=== PATIENT | male | born 1970 | race Caucasian/White ===

== ENCOUNTER → 2019-11-13 12:20 | Outpatient (CLI) | payer OTHER, SELFPAY ==
[2019-11-13 13:33] LABS: Basophils # 0.1 K/mm3 (0-0.2); Basophils % 1.4 % (0.1-2.0); Eosinophils % 0.8 % (0.1-12.0); Hematocrit 44.6 % (42.0-52.0); Hemoglobin 15.5 g/dL (14.1-18.0); Lymphocytes # 1.4 K/mm3 (0.7-4.5); Lymphocytes % 28.3 % (10-50); Mean Corpuscular HGB Conc 34.8 g/dL (31.8-35.4); Mean Corpuscular Hemoglobin 30.8 pg (27.0-31.2); Mean Corpuscular Volume 88.4 fl (80-94); Mean Platelet Volume 7.6 fl (7.4-10.4); Monocytes # 0.8 K/mm3 (0.1-1.0); Monocytes % 15.8 % (1.7-9.3); Neutrophils # 2.7 K/mm3 (1.8-7.8); Neutrophils % 53.7 % (37.0-80.0); Platelet Count 189 K/mm3 (142-424); Red Blood Count 5.04 M/mm3 (4.60-6.20); Red Cell Distribution Width 13.6 % (11.5-17.5)
[2019-11-13 14:54] LABS: Coronavirus 19 IgG Antibody Negative (Negative); Coronavirus 19 IgM Antibody Negative (Negative)
[2019-11-15 04:40] LABS: Covid-19 Nasal PCR Sendout Lex NOT DETECTED
== END ==
PROVIDERS: PCP Nurse Practitioner; Visit Provider Nurse Practitioner
DX: Z03.818 Encounter for observation for suspected exposure to other biological agents ruled out (principal)
CPT/HCPCS: 36415; 85025; 86328; U0004

== ENCOUNTER → 2021-12-09 06:27 | Outpatient (CLI) | payer OTHER, SELFPAY ==
[2021-12-08 23:09] LABS: Free T4 (Free Thyroxine) 1.86 ng/dl (0.78-2.19)
[2021-12-09 00:02] LABS: Thyroid Stimulating Hormone 1.26 uIU/mL (0.465-4.68)
== END ==
PROVIDERS: PCP Nurse Practitioner; Visit Provider Nurse Practitioner
DX: E03.9 Hypothyroidism, unspecified (principal)
CPT/HCPCS: 84439; 84443

== ENCOUNTER → 2022-07-30 11:00 | Outpatient (CLI) | payer OTHER, SELFPAY ==
[2022-07-30 19:04] LABS: Basophils # 0.1 K/mm3 (0-0.2); Basophils % 1.7 % (0.1-2.0); Eosinophils # 0.2 K/mm3 (0.0-0.4); Eosinophils % 3.3 % (0.1-12.0); Hematocrit 47.1 % (42.0-52.0); Hemoglobin 15.4 g/dL (14.1-18.0); Lymphocytes # 2.3 K/mm3 (0.7-4.5); Lymphocytes % 38.8 % (10-50); Mean Corpuscular HGB Conc 32.7 g/dL (31.8-35.4); Mean Corpuscular Hemoglobin 29.7 pg (27.0-31.2); Mean Corpuscular Volume 90.8 fl (80-94); Mean Platelet Volume 8.7 fl (7.4-10.4); Monocytes # 0.6 K/mm3 (0.1-1.0); Monocytes % 9.2 % (1.7-9.3); Neutrophils # 2.8 K/mm3 (1.8-7.8); Platelet Count 263 K/mm3 (142-424); Red Blood Count 5.19 M/mm3 (4.60-6.20)
[2022-07-30 19:24] LABS: Alanine Aminotransferase 30 U/L (12-78); Albumin Level 4.2 g/dl (3.5-5.0); Albumin/Globulin Ratio 1.6 (1.1-1.8); Alkaline Phosphatase 68 U/L (38-126); Anion Gap 10.7 mEq/L (5-15); Aspartate Amino Transferase 31 U/L (17-59); Bilirubin,Total 0.9 mg/dl (0.2-1.3); Blood Urea Nitrogen 18 mg/dl (9-20); Calcium 8.8 mg/dl (8.4-10.2); Carbon Dioxide 28 mmol/L (22.0-30.0); Chloride 103 mmol/L (98-107); Cholesterol 139 mg/dl (140-200); Estimated Glomerular Filt Rate 79 ml/min (>60); GFR (African American) 96 ML/MIN (>60); Globulin 2.7 g/dL (1.3-3.2); Glucose 96 mg/dl (74-100); HDL Cholesterol 46 mg/dl (40-60); Potassium 4.7 mmoL/L (3.5-5.1); Sodium 137 mmol/L (136-145); Total Protein,Serum 6.9 g/dl (6.3-8.2); Triglycerides 54 mg/dl (30-150); VLDL Cholesterol 11 mg/dL (0-40)
[2022-07-30 19:35] LABS: Direct LDL Cholesterol 77.52 mg/dL (100-129)
[2022-07-30 19:40] LABS: Creatinine,Urine Random 49 mg/dL (Not Estab.); Microalbumin < 6.000 mg/L (0-16.7)
[2022-07-30 19:55] LABS: Prostate Specific Ag Screen 1.1 ng/ml (0.0-4.0); Thyroid Stimulating Hormone 0.02 uIU/mL (0.465-4.68)
[2022-07-30 19:58] LABS: Hemoglobin A1C 5.4 % (4.0-6.0)
== END ==
LOC: LAB.DROPOF 07-31 08:31
PROVIDERS: PCP Nurse Practitioner; Visit Provider Nurse Practitioner
DX: E03.9 Hypothyroidism, unspecified (principal); E78.5 Hyperlipidemia, unspecified; I10 Essential (primary) hypertension; Z12.5 Encounter for screening for malignant neoplasm of prostate
CPT/HCPCS: 80053; 80061; 82043; 82570; 83036; 84443; 85025; G0103

== ENCOUNTER → 2022-08-05 15:23 | Outpatient (CLI) | payer OTHER, SELFPAY ==
--- NOTE | 2022-08-05 15:30 | CT_ITS ---
FINAL REPORT CLINICAL HISTORY: lung cancer screening 52-year-old former smoker for 18 yrs, quit 15 yrs ago, 1 pk per day FINDINGS: Low-Dose Chest CT Axial images were obtained from the lung apex to the mid abdomen by computed tomography. Low-dose protocol was utilized. CTDI vol (mGy): 2.90 DLP (mGy-cm): 114.90 There is no axillary adenopathy. There is no hilar or mediastinal adenopathy. The heart is proper size. There is no pericardial or pleural effusion. Lung window images demonstrate no suspicious infiltrate or nodule. Limited images of the upper abdomen are unremarkable. IMPRESSION: No suspicious infiltrate or nodule is identified. Lung RADS category 1. Recommend 12 month follow-up low-dose chest CT. Reviewed, Interpreted and Dictated by Fredy Marques MD Transcribed by Guillermina Hu Authenticated and [facility]
== END ==
LOC: RAD 15:23
PROVIDERS: PCP Nurse Practitioner; Visit Provider Nurse Practitioner
DX: Z87.891 Personal history of nicotine dependence (principal); Z12.2 Encounter for screening for malignant neoplasm of respiratory organs
CPT/HCPCS: 71271

== ENCOUNTER → 2022-12-08 23:17 | Outpatient (CLI) | payer OTHER, SELFPAY ==
[2022-12-08 19:00] LABS: Alanine Aminotransferase 38 U/L (12-78); Albumin Level 4.1 g/dl (3.5-5.0); Albumin/Globulin Ratio 1.4 (1.1-1.8); Alkaline Phosphatase 78 U/L (38-126); Aspartate Amino Transferase 38 U/L (17-59); Bilirubin,Total 0.6 mg/dl (0.2-1.3); Blood Urea Nitrogen 20 mg/dl (9-20); Carbon Dioxide 27 mmol/L (22.0-30.0); Chloride 106 mmol/L (98-107); Chol/HDL Ratio 3.7 (1-3.5); Cholesterol 161 mg/dl (140-200); Estimated Glomerular Filt Rate 58 ml/min (>60); GFR (African American) 71 ML/MIN (>60); Glucose 110 mg/dl (74-100); HDL Cholesterol 43 mg/dl (40-60); Sodium 140 mmol/L (136-145); Total Protein,Serum 7.1 g/dl (6.3-8.2); Triglycerides 111 mg/dl (30-150); VLDL Cholesterol 22 mg/dL (0-40)
[2022-12-08 19:10] LABS: Direct LDL Cholesterol 83.15 mg/dL (100-129)
[2022-12-08 19:18] LABS: Free T4 (Free Thyroxine) 1.37 ng/dl (0.78-2.19)
== END ==
LOC: LAB.DROPOF 23:17
PROVIDERS: PCP Nurse Practitioner; Visit Provider Nurse Practitioner
DX: E03.9 Hypothyroidism, unspecified (principal); E78.5 Hyperlipidemia, unspecified; I10 Essential (primary) hypertension
CPT/HCPCS: 80053; 80061; 84439; 84443

== ENCOUNTER → 2023-02-05 20:41 | Outpatient (CLI) | payer OTHER, SELFPAY ==
[2023-02-05 21:00] LABS: Anion Gap 14.5 mEq/L (5-15); Blood Urea Nitrogen 17 mg/dl (9-20); Calcium 8.9 mg/dl (8.4-10.2); Carbon Dioxide 27 mmol/L (22.0-30.0); Chloride 105 mmol/L (98-107); Estimated Glomerular Filt Rate 71 ml/min (>60); GFR (African American) 86 ML/MIN (>60); Glucose 100 mg/dl (74-100); Potassium 4.5 mmoL/L (3.5-5.1); Sodium 142 mmol/L (136-145)
[2023-02-05 21:02] LABS: Hemoglobin A1C 5.5 % (4.0-6.0)
[2023-02-05 21:17] LABS: Free T4 (Free Thyroxine) 1.85 ng/dl (0.78-2.19)
[2023-02-05 21:31] LABS: Thyroid Stimulating Hormone 0.09 uIU/mL (0.465-4.68)
== END ==
LOC: LAB.DROPOF 20:43
PROVIDERS: PCP Nurse Practitioner; Visit Provider Nurse Practitioner
DX: E03.9 Hypothyroidism, unspecified (principal); I10 Essential (primary) hypertension; Z87.891 Personal history of nicotine dependence
CPT/HCPCS: 80048; 83036; 84439; 84443

== ENCOUNTER 2023-10-08 09:44 | Outpatient (CLI) | payer OTHER, SELFPAY ==
[2023-10-08 18:25] LABS: Basophils # 0.1 K/mm3 (0-0.2); Basophils % 1.3 % (0.1-2.0); Eosinophils # 0.2 K/mm3 (0.0-0.4); Eosinophils % 3.4 % (0.1-12.0); Hematocrit 46.6 % (42.0-52.0); Hemoglobin 15.6 g/dL (14.1-18.0); Lymphocytes # 1.9 K/mm3 (0.7-4.5); Lymphocytes % 29.3 % (10-50); Mean Corpuscular HGB Conc 33.6 g/dL (31.8-35.4); Mean Corpuscular Hemoglobin 31.1 pg (27.0-31.2); Mean Corpuscular Volume 92.5 fl (80-94); Mean Platelet Volume 9.2 fl (7.4-10.4); Monocytes # 0.4 K/mm3 (0.1-1.0); Neutrophils # 3.7 K/mm3 (1.8-7.8); Platelet Count 221 K/mm3 (142-424); Red Blood Count 5.04 M/mm3 (4.60-6.20); Red Cell Distribution Width 13.7 % (11.5-17.5); White Blood Count 6.3 K/mm3 (4.8-10.8)
[2023-10-08 18:38] LABS: Alanine Aminotransferase 34 U/L (12-78); Albumin Level 4.1 g/dl (3.5-5.0); Albumin/Globulin Ratio 1.5 (1.1-1.8); Alkaline Phosphatase 64 U/L (38-126); Anion Gap 14.4 mEq/L (5-15); Aspartate Amino Transferase 38 U/L (17-59); Bilirubin,Total 0.5 mg/dl (0.2-1.3); Blood Urea Nitrogen 19 mg/dl (9-20); Calcium 9.3 mg/dl (8.4-10.2); Carbon Dioxide 25 mmol/L (22.0-30.0); Chloride 108 mmol/L (98-107); Chol/HDL Ratio 3.2 (1-3.5); Cholesterol 191 mg/dl (140-200); Estimated Glomerular Filt Rate 79 ml/min (>60); GFR (African American) 95 ML/MIN (>60); Globulin 2.8 g/dL (1.3-3.2); Glucose 111 mg/dl (74-100); HDL Cholesterol 60 mg/dl (40-60); Potassium 4.4 mmoL/L (3.5-5.1); Sodium 143 mmol/L (136-145); Total Protein,Serum 6.9 g/dl (6.3-8.2); Triglycerides 75 mg/dl (30-150); VLDL Cholesterol 15 mg/dL (0-40)
[2023-10-08 18:50] LABS: Direct LDL Cholesterol 106.16 mg/dL (100-129)
[2023-10-08 18:56] LABS: 25-OH Vitamin D, Total 35.7 ng/mL (30-100)
[2023-10-08 19:03] LABS: Hemoglobin A1C 5.6 % (4.0-6.0)
[2023-10-08 19:09] LABS: Prostate Specific Ag Screen 1.1 ng/ml (0.0-4.0); Thyroid Stimulating Hormone 3.67 uIU/mL (0.465-4.68)
[2023-10-08 19:29] LABS: Vitamin B12 381 pg/mL (239-931)
== END 2023-10-08 23:59 | disposition home or self-care (01) ==
LOC: LAB.DROPOF 10-12 09:44
PROVIDERS: PCP Nurse Practitioner Family; Visit Provider Nurse Practitioner Family
DX: I10 Essential (primary) hypertension (principal); Z79.899 Other long term (current) drug therapy
CPT/HCPCS: 80053; 80061; 82306; 82607; 83036; 84443; 85025; G0103

== ENCOUNTER 2024-08-11 08:59 | Outpatient (CLI) | payer OTHER, SELFPAY ==
[2024-08-11 18:39] LABS: Basophils # 0.1 K/mm3 (0-0.2); Basophils % 1.5 % (0.1-2.0); Eosinophils # 0.4 K/mm3 (0.0-0.4); Eosinophils % 5.9 % (0.1-12.0); Hematocrit 45.6 % (42.0-52.0); Hemoglobin 15.1 g/dL (14.1-18.0); Lymphocytes # 2.1 K/mm3 (0.7-4.5); Lymphocytes % 34.5 % (10-50); Mean Corpuscular HGB Conc 33.1 g/dL (31.8-35.4); Mean Corpuscular Hemoglobin 29.9 pg (27.0-31.2); Mean Corpuscular Volume 90.3 fl (80-94); Mean Platelet Volume 10.5 fl (7.4-10.4); Monocytes # 0.6 K/mm3 (0.1-1.0); Monocytes % 10.3 % (1.7-9.3); Neutrophils # 2.9 K/mm3 (1.8-7.8); Neutrophils % 47.5 % (37.0-80.0); Platelet Count 220 K/mm3 (142-424); Red Blood Count 5.05 M/mm3 (4.60-6.20); Red Cell Distribution Width 12.6 % (11.5-17.5); White Blood Count 6.1 K/mm3 (4.8-10.8)
[2024-08-11 19:04] LABS: Alanine Aminotransferase 30 U/L (12-78); Albumin Level 4.4 g/dl (3.5-5.0); Albumin/Globulin Ratio 1.9 (1.1-1.8); Alkaline Phosphatase 54 U/L (38-126); Anion Gap 13.6 mEq/L (5-15); Aspartate Amino Transferase 32 U/L (17-59); Bilirubin,Total 0.6 mg/dl (0.2-1.3); Blood Urea Nitrogen 18 mg/dl (9-20); Calcium 9.8 mg/dl (8.4-10.2); Carbon Dioxide 27 mmol/L (22.0-30.0); Chloride 104 mmol/L (98-107); Cholesterol 198 mg/dl (140-200); Estimated Glomerular Filt Rate 78 ml/min (>60); GFR (African American) 95 ML/MIN (>60); Globulin 2.3 g/dL (1.3-3.2); Glucose 101 mg/dl (74-100); HDL Cholesterol 50 mg/dl (40-60); Potassium 4.6 mmoL/L (3.5-5.1); Sodium 140 mmol/L (136-145); Total Protein,Serum 6.7 g/dl (6.3-8.2); Triglycerides 83 mg/dl (30-150); VLDL Cholesterol 17 mg/dL (0-40)
[2024-08-11 19:16] LABS: 25-OH Vitamin D, Total 30.9 ng/mL (30-100)
[2024-08-11 19:22] LABS: Direct LDL Cholesterol 111.54 mg/dL (100-129)
[2024-08-11 19:33] LABS: Thyroid Stimulating Hormone 9.61 uIU/mL (0.465-4.68)
[2024-08-11 20:19] LABS: HIV Combo NEGATIVE (Negative)
[2024-08-11 20:26] LABS: Hepatitis C Ab Qual. W/ RFX NEGATIVE (Negative)
== END 2024-08-11 23:59 | disposition home or self-care (01) ==
LOC: LAB.DROPOF 08-12 11:16
PROVIDERS: PCP Nurse Practitioner Family; Visit Provider Nurse Practitioner Family
DX: E03.9 Hypothyroidism, unspecified (principal); I10 Essential (primary) hypertension; Z11.59 Encounter for screening for other viral diseases
CPT/HCPCS: 80053; 80061; 82306; 84443; 85025; 86803; 87389

== ENCOUNTER → 2024-09-25 08:21 | Outpatient (CLI) | payer OTHER, SELFPAY | LOC: SL 08:22 | PROVIDERS: PCP Nurse Practitioner Family; Visit Provider Nurse Practitioner Family | DX: G47.33 Obstructive sleep apnea (adult) (pediatric) (principal); R40.0 Somnolence; R06.83 Snoring | CPT/HCPCS: G0399 ==

== ENCOUNTER 2025-01-30 12:00 | Outpatient (CLI) | payer OTHER, SELFPAY ==
[2025-01-30 16:09] LABS: Alanine Aminotransferase 24 U/L (12-78); Albumin Level 4.0 g/dl (3.5-5.0); Albumin/Globulin Ratio 1.5 (1.1-1.8); Alkaline Phosphatase 64 U/L (38-126); Anion Gap 8.5 mEq/L (5-15); Aspartate Amino Transferase 31 U/L (17-59); Bilirubin,Total 0.6 mg/dl (0.2-1.3); Blood Urea Nitrogen 16 mg/dl (9-20); Calcium 9.1 mg/dl (8.4-10.2); Carbon Dioxide 29 mmol/L (22.0-30.0); Chloride 106 mmol/L (98-107); Cholesterol 147 mg/dl (140-200); Creatinine,Serum 0.90 mg/dl (0.66-1.25); Estimated Glomerular Filt Rate 89 ml/min (>60); GFR (African American) 107 ML/MIN (>60); Globulin 2.7 g/dL (1.3-3.2); Glucose 96 mg/dl (74-100); HDL Cholesterol 49 mg/dl (40-60); Potassium 4.5 mmoL/L (3.5-5.1); Sodium 139 mmol/L (136-145); Total Protein,Serum 6.7 g/dl (6.3-8.2); Triglycerides 78 mg/dl (30-150)
[2025-01-30 16:39] LABS: Free T4 (Free Thyroxine) 2.10 ng/dl (0.78-2.19)
[2025-01-30 16:41] LABS: Thyroid Stimulating Hormone < 0.02 uIU/mL (0.465-4.68)
--- OUTSIDE RECORDS SUMMARY | 2025-01-31 13:08 | XMS_ITS | Clinical Summary ---
Author Organization [facility] Address [address] [place] [address] Phone Care Team Providers Care Manager Of Sales Name Role Phone Miguelina Bella Jeancarlos TEMPLE Primary Care Provider [phone] Allergies No known active allergies Medications ibuprofen (ADVIL;MOTRIN) 400 mg Oral Tablet Take 1 Tab by mouth every 6 hours as needed for Pain. 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 Immunizations Immunization Administration Dates Next Due Influenza Vaccine Quadrivalent PF 02/08/2016 Social History Tobacco Use Types Packs/Day Years Used Date Smoking Tobacco: Former Cigarettes 1 22 0 02/07/1987 - 02/07/2009 Smokeless Tobacco: Never Alcohol Use Standard Drinks/Week Comments Yes 0 (1 standard drink = 0.6 oz pur e alcohol) occ Sex and Gender Information Value Date Recorded Sex Assigned at Not on file Legal Sex Male 11:05 PM EDT Gender Identity Not on file Sexual Orientation Not on file Obstetrics History Last Filed Vital Signs Vital Sign Reading Time Taken Comments Blood Pressure 122/86 12/04/2022 8:48 AM EDT Pulse 103 12/04/2022 8:48 AM EDT Temperature 36.8 C (98.2 F) 02/08/2016 5:28 PM EDT Respiratory Rate 16 12/04/2022 8:48 AM EDT Oxygen Saturation 96% 12/04/2022 8:49 AM EDT Inhaled Oxygen Concentration - - Weight 83.9 kg (185 lb) 02/07/2016 11:09 PM EDT Height 190.5 cm (6' 3 ) 02/07/2016 11:09 PM EDT Body Mass Index 23.12 02/07/2016 11:09 PM EDT Plan of Treatment Health Maintenance Due Date Last Done Comments Annual Wellness Exam 1975 Hepatitis B Vaccine (1 of 3 - 19+ 3-dose series) 1991 Cologuard 2017 Colon Cancer Screening 2017 Colonoscopy 2017 FIT 2017 Sigmoidoscopy 2017 Virtual Colonography 2017 Pneumococcal Vaccine 50+ (1 of 1 - PCV) 2022 Zoster (1 of 2) 2022 COVID-19 Vaccine (1 - 2023-2 5 season) 2025 Influenza Vaccine (#1) 2025 02/08/2016 DTaP/TDaP/Td (2 - Td or Tdap) 08/06/2030 08/06/2020 Meningococcal B Vaccine Aged Out No l onger eligible based on patient's age to complete this topic Insurance CHOICE PLUS * Guarantor: Frank Carrasquillo Account Type Relation to Patient Date of Phone Billing Address [place] Personal Family Self Care Teams Manager Of Sales Relationship Specialty Start Date End Date Miguelina Bella APRN [address] [facility] [address] [place] [id number] PCP - General Nurse Practitioner 12/04/22
--- OUTSIDE RECORDS SUMMARY | 2025-01-31 13:08 | XMS_ITS | Clinical Summary ---
Author Organization [facility] Address [address] [place] [address] Care Team Providers Care Database Operator Name Role Phone Sonia Castillo MD Primary Care Provider [phone] Social History Tobacco Use Types Packs/Day Years Used Date Smoking Tobacco: Never Assessed Sex and Gender Information Value Date Recorded Sex Assigned at Not on file Legal Sex Male 4:37 PM EST Gender Identity Not on file Sexual Orientation Not on file Plan of Treatment Health Maintenance Due Date Last Done Comments CT Colonography 1972 Colonoscopy 1972 Colorectal Cancer Screening 1972 FIT-DNA 1972 FIT 1972 FOBT 1972 Sigmoidoscopy 1972 Hepatitis B (HepB) Vaccine ( 1 of 3 - 19+ 3-dose series) 1991 Tdap/Td Vaccine >11 yo (1 - Tdap) 1991 Pneumococcal Vaccines >50 yo (1 of 1 - PCV) 2022 Shingles (Shingrix) (1 of 2) 2022 Annual SDOH Screening 05/17/2024 Influenza Vaccine (#1) 2025 RSV 50+ and (1 - 1 -dose 75+ series) 2047 Haemophilus Influenzae Type B (Hib) Vaccine Aged Out No longer eligible b ased on patient's age to complete this topic Hepatitis A (HepA) Vaccine Aged Out N o longer eligible based on patient's age to complete this topic Meningococcal ACWY Aged Out No longer eligible based on patient's age to complete this topic Polio (IPV) Aged Out No longer eligi ble based on patient's age to complete this topic Rotavirus (RV) Vaccine Aged Out No lo nger eligible based on patient's age to complete this topic Care Teams Database Operator Relationship Specialty Start Date End Date Sonia Castillo MD [address] [phone] PCP - General 04/20/07
== END 2025-01-30 23:59 | disposition home or self-care (01) ==
LOC: LAB.DROPOF 01-31 13:06
PROVIDERS: PCP Nurse Practitioner; Visit Provider Nurse Practitioner
DX: E03.9 Hypothyroidism, unspecified (principal); E78.5 Hyperlipidemia, unspecified; I10 Essential (primary) hypertension; Z12.5 Encounter for screening for malignant neoplasm of prostate
CPT/HCPCS: 80053; 80061; 82043; 82570; 84439; 84443; G0103